=== PATIENT | female | born 1945 | race Caucasian/White ===

== ENCOUNTER 2024-07-09 13:52 | Inpatient (IN) | payer MEDICARE, OTHER ==
[~2024-07-09] VITALS: Ht 160 cm; Wt 73.7 kg
[~2024-07-09 13:52] MED LIST: ASTELIN NASAL S34 ML; FLOVENT 110MCG7.9 GM IH; LASIX 40MG TABL40 MG PO; LEVSIN0.125 M1 PO; MACRODANTIN50 MG/CA1 PO; PERIDEX (CHLOR480 ML MM; PROZAC 10MG10 MG PO; TIAZAC180 MG PO; TOPROL XL 50MG50 MG PO; WELLBUTRIN 100100 MG PO
[2024-07-22] VITALS (12 sets, daily range): BP systolic 110–147; BP diastolic 45–83; PULSE 55–70; TEMP 97.8–98.5
[2024-07-22] MEDS ORDERED: LR 1,000 ML IV SCH ×2 (06:00→14:30)
[2024-07-22] MEDS ORDERED: Gabapentin 100 MG CAP PO SCH (09:00)
[2024-07-22] MEDS ORDERED: metroNIDAZOLE 500 MG/100 ML IVPB IV SCH (09:00)
[2024-07-22] MEDS ORDERED: Acetaminophen 500 MG TAB PO SCH ×2 (09:00→15:22)
[2024-07-22] MEDS ORDERED: Celecoxib 200 MG CAP PO SCH (09:00)
[2024-07-22] MEDS ORDERED: Midazolam 2 MG/2 ML VIAL ONE (09:43)
[2024-07-22] MEDS ORDERED: Rocuronium 50 MG/5 ML Multi-Dose VIAL ONE ×2 (09:43→12:00)
[2024-07-22] MEDS ORDERED: fentaNYL 50 MCG/ML 2 ML VIAL ONE ×2 (09:43→14:09)
[2024-07-22] MEDS ORDERED: Lidocaine PF 2% (20 MG/ML) 5 ML VIAL ONE (09:44)
[2024-07-22] MEDS ORDERED: Glycopyrrolate 0.2 MG/ML 1 ML VIAL ONE ×2 (09:45→11:43)
[2024-07-22] MEDS ORDERED: NS 20 ML IV ONE (09:45)
[2024-07-22] MEDS ORDERED: NS 10 ML IV ONE (09:45)
[2024-07-22] MEDS ORDERED: dexAMETHasone 10 MG/ML VIAL ONE (09:45)
[2024-07-22] MEDS ORDERED: Ondansetron 4 MG/2 ML VIAL ONE (09:45)
[2024-07-22] MEDS ORDERED: Ketorolac 30 MG/ML VIAL ONE (09:45)
[2024-07-22] MEDS ORDERED: NORVASC 5MG5 MG/TAB PO (10:37)
[2024-07-22] MEDS ORDERED: ZEBETA 5MG5 MG PO (10:38)
[2024-07-22] MEDS ORDERED: MUCINEX 60600 MG/TA1 PO (10:39)
[2024-07-22] MEDS ORDERED: ADVIL200 MG PO ×2 (10:39)
[2024-07-22] MEDS ORDERED: ePHEDrine 50 MG/ML VIAL ONE (11:12)
[2024-07-22] MEDS ORDERED: NS 100 ML IV ONE (11:14)
[2024-07-22] MEDS ORDERED: fentaNYL 50 MCG/ML 1 ML SYRINGE/VIAL [PACU/SDC ONLY] IV PRN (11:30)
[2024-07-22] MEDS ORDERED: hydrALAZINE 20 MG/ML 1 ML VIAL IV PRN (11:30)
[2024-07-22] MEDS ORDERED: droPERidol 2.5 MG/ML 2 ML VIAL IV PRN (11:30)
[2024-07-22] MEDS ORDERED: Ondansetron 4 MG/2 ML VIAL IV PRN ×2 (11:30→14:30)
[2024-07-22] MEDS ORDERED: HYDROmorphone 1 MG/1 ML SYRINGE [PACU/SDC ONLY] IV PRN (11:30)
--- NOTE | 2024-07-22 14:00 | NUR ---
Pt. to the floor. Pt. is A&OX3, assessment complete. IV to lt. forearm patent. Pt. denies. pain. 5 abd. lap sites with bandaids, CDI 1 small midline CDI. Pt. denies further needs, call light within reach.
[2024-07-22] MEDS ORDERED: Naloxone 0.4 MG/ML VIAL IV PRN (14:30)
[2024-07-22] MEDS ORDERED: HYDROmorphone 0.5 MG/0.5 ML SYRINGE IV PRN (14:30)
[2024-07-22] MEDS ORDERED: Furosemide 40 MG TAB PO PRN (14:30)
[2024-07-22] MEDS ORDERED: Ibuprofen 200 MG TAB PO PRN (14:30)
[2024-07-22] MEDS ORDERED: oxyCODONE 5 MG TAB PO PRN (14:30)
[2024-07-22] MEDS ORDERED: ROXICODONE 55 MG/TAB PO (14:47)
[2024-07-22] MEDS ORDERED: ceFAZolin 2 G in Water For Injection,Sterile 20 ML IV SCH (18:22)
[2024-07-22] MEDS ORDERED: [UNRECOGNIZED DRUG - OTHER] IH SCH (19:00)
[2024-07-22] MEDS ORDERED: FLUTICASONE 110 MCG IH SCH (19:00)
[2024-07-22] MEDS ORDERED: Budesonide Neb Susp 0.5 MG/2 ML AMP IH SCH (19:00)
--- NOTE | 2024-07-22 20:45 | NUR ---
PT A&O X4 LAYING IN BED. VSS. SHIFT ASSESSMENT & HS MEDS COMPLETE. PT DENYING PAIN OR N/V. PT REPORTS TOLERATING CLEARS SLOWLY. DENIES PASSING GAS YET. X5 LAP SITES WITH BANDAIDS CDI & LOW TRANSVERSE WITH GAUZE DRSG HAS SOME SHADOWING. CHAVEZ TO DD WITH YELLOW OUTPUT. IVF INFUSING TO LEFT AC AT 75MLS/HR. PT DENYING FURTHER NEEDS AT THIS TIME. CALL LIGHT IN REACH
[2024-07-22] MEDS ORDERED: guaiFENesin 200 MG TAB PO SCH (21:00)
[2024-07-22] MEDS ORDERED: guaiFENesin ER 600 MG **** subs to guaiFENesin 200 MG PO SCH (21:00)
[2024-07-22] MEDS ORDERED: FLUoxetine 10 MG TAB/CAP PO SCH (21:00)
[2024-07-23] VITALS (11 sets, daily range): BP systolic 120–137; BP diastolic 55–67; PULSE 58–99; TEMP 97.5–98.7
--- NOTE | 2024-07-23 06:00 | NUR ---
PTS CHAVEZ REMOVED. 9ML OUT OF BALLOON. PT EDUCATED TO CALL WHEN NEEDING TO VOID & HAT PLACED IN RESTROOM. PT AMBULATED AROUND ROOM & IS NOW SITTING UP IN RECLINER. DENYING PAIN OR N/V. REPORTS SHE HAS NOT PASSED GAS YET. CALL LIGHT IN REACH
[2024-07-23 06:24] LABS: CALCIUM 9.4 mg/dL (8.4-10.2); CREATININE, serum 1.02 mg/dL (0.57-1.11); POTASSIUM 4.5 mEq/L (3.5-4.5)
--- NOTE | 2024-07-23 08:00 | NUR ---
SHIFT ASSESSMENT COMPLETE. VSS. PATIENT AWAKE SITTING IN RECLINER WAITING FOR BREAKFAST. ALL MORNING MEDS GIVEN PER ORDERS. PATIENT ADVISED TO WALK EVERY 1-2 HOURS TO HELP WITH ABD GAS RELEIF. PATIENT EXPRESSED UNDERSTANDING AND STATES SHE HAS PASSED GASED. PATIENT HAS NO OTHER NEEDS AT THIS TIME. CALL LIGHT IN REACH.
[2024-07-23] MEDS ORDERED: Bisoprolol 5 MG TAB PO SCH (09:00)
[2024-07-23] MEDS ORDERED: amLODIPine 5 MG TAB PO SCH (09:00)
[2024-07-23] MEDS ORDERED: Azelastine 0.1% Nasal Spray 30 ML BOTTLE NS SCH (09:00)
[2024-07-23] MEDS ORDERED: buPROPion 100 MG TAB PO SCH (09:00)
[2024-07-23 09:51] LABS: BASO % 0.1 % (0.0-2.0); GRAN # 9.7 K/mm3 (1.4-6.5); GRAN % 79.7 % (42.2-75.2); HEMATOCRIT 37.4 % (37.0-47.0); HEMOGLOBIN 12.4 g/dl (12.5-16.0); LYMPH # 1.3 K/mm3 (1.2-3.4); LYMPH % 10.6 % (20.0-51.0); MEAN CELL VOLUME 96 fl (80.0-100.0); MEAN CORPUSCULAR HEMOGLOBIN 32 pg (27-31); MEAN CORPUSCULAR HGB CONC 33 g/dl (33.0-37.0); MEAN PLATELET VOLUME 10.4 fl (7.4-10.4); MONO # 1.1 K/mm3 (0.1-0.6); MONO % 9.2 % (1.7-9.3); PLATELET COUNT 238 K/mm3 (130-400); RED BLOOD COUNT 3.88 M/mm3 (4.10-5.30)
--- NOTE | 2024-07-23 10:38 | NUR ---
vegetable harvest worker met with pt to discuss discharge planning. She reports to live with her , Nino [phone] in [place]. She sees Dr. Dallas for PCP needs and obtains medications from [facility] with no difficulties. She confirmed her insurance as Medicare A and B and [employer]. She reports to be independent with ADLS and uses a cane for DME. She reports her son's, Dannie [phone], Javier [phone], and Blair [phone] as her DPOA-HC and a copy is at home. She has no concerns for mobilty and reports being eager to go home. Discharge Plan: home
--- NOTE | 2024-07-23 12:36 | NUR ---
D: Yard Warehouse Worker stopped by room on rounds. A: Pt was sitting in her chair getting ready to eat some lunch with her by her side. Pt and have been for 59 years. They have no needs right now. Both appreciated the visit. P: Yard Warehouse Worker informed pt that if she needed anything from the nuisance wildlife trapper area to let her nurse know. Yard Warehouse Worker will follow up as needed.
[2024-07-24] VITALS (8 sets, daily range): BP systolic 113–136; BP diastolic 54–72; PULSE 54–63; TEMP 98–98.6
--- NOTE | 2024-07-24 06:32 | NUR ---
THE PATIENT DENIED PAIN OR DISCOMFORT ALL NIGHT. NO S/S OF DISTRESS NOTED. THE PATIENT WAS ALERT AND ORIENTED. BOWEL SOUNDS ACTIVE IN ALL QUAD. THE PATIENT REPORTED PASSING GAS. THE PATIENT DENIED NEEDS AND REFUSED HER SCHEDULED TYLENOL THIS MORNING. CALL LIGHT AND PERSONAL BELONGINGS WITHIN REACH. THE PATIENT IS UP INDEPENDENTLY IN THE ROOM WITH A STEADY GAIT.
--- NOTE | 2024-07-24 09:17 | NUR ---
SHIFT ASSESSMENT COMPLETE. VSS. PATIENT AWAKE IN SITTING IN RECLINER FINISHING BREAKFAST. PATIENT REPORTS NO PAIN AT THIS TIME. PATIENT HAS BEEN UP WALKING HALLS AND REPORTS PASSING GAS AND HAVING A BM THIS AM. ALL MORNING MEDS GIVEN ORDERED. PATIENT HAS NO REQUEST AT THIS TIME JUST STATES READY TO GO HOME. CALL IN REACH.
== END 2024-07-24 12:00 | disposition home or self-care (01) | DRG 331 ==
LOC: SURG 07-22 08:23 → INPTSU 07-22 08:23 → SURG 07-22 11:15
PROVIDERS: ADMIT Surgery
PROC: 8E0W4CZ Robotic Assisted Procedure of Trunk Region, Percutaneous Endoscopic Approach (ICD-10-PCS; 2024-07-22)
PROC: 0DBN4ZZ Excision of Sigmoid Colon, Percutaneous Endoscopic Approach (ICD-10-PCS; principal; 2024-07-22 11:15)
DX: C19 Malignant neoplasm of rectosigmoid junction (principal); K58.1 Irritable bowel syndrome with constipation; Z90.710 Acquired absence of both cervix and uterus
CPT/HCPCS: A4314; A9284; J0688; J0690; J1100; J1836; J1885; J2250; J2405; J2704; J2795; J3010; J7120